=== PATIENT | female | born 1965 | race Two or more races ===

== ENCOUNTER 2019-07-16 07:48 | Outpatient (CLI) | payer OTHER | END 2019-07-16 08:01 | disposition home or self-care (01) | LOC: RAD 07:48 | DX: M79.602 Pain in left arm (principal); M79.601 Pain in right arm ==

== ENCOUNTER 2024-07-09 16:40 | Emergency (ER) | payer OTHER ==
[~2024-07-09] VITALS: Ht 167.6 cm; Wt 70.3 kg
[2024-07-09 17:52] LABS: HEMATOCRIT 40.3 % (36.0-45.00); HEMOGLOBIN 13.9 g/dL (12.0-15.00); MEAN CELL VOLUME 92.8 fL (80.00-100.00); MEAN CORPUSCULAR HEMOGLOBIN 31.9 pg (27.00-32.0); MEAN CORPUSCULAR HGB CONC 34.4 g/dl (32.0-36.0); PLATELET COUNT 276 K/uL (150-450); RED BLOOD COUNT 4.34 M/uL (4.00-6.00); RED CELL DISTRIBUTION WIDTH 13.6 % (11.5-14.5)
[2024-07-09 17:54] LABS: PH,URINE 5.5 (5.0-8.0); URINE APPEARANCE Turbid; URINE BILIRRUBIN Negative (NEGATIVE); URINE BLOOD Moderate; URINE COLOR Dark Yellow; URINE GLUCOSE Negative (NEGATIVE); URINE KETONE Negative (NEGATIVE); URINE LEUKOCYTE Large; URINE NITRATE Positive
[2024-07-09 17:57] LABS: URINE BACTERIA 246.9 uL (0.0-1933); URINE EPITHELIAL CELLS 32.6 uL (0.0-38.8); URINE RBC 37.5 uL (0.0-20.8)
[2024-07-09 18:12] LABS: CALCIUM 9.6 mg/dL (8.5-10.1); CREATININE SERUM 0.8 mg/dL (0.55-1.02); GFR 73.93; POTASSIUM 4.03 mEq/L (3.5-5.1)
[2024-07-09 18:23] LABS: URINE PROTEIN 100 (NEGATIVE)
[2024-07-09 18:24] LABS: URINE MUCUS SCANT
[2024-07-09] MEDS ORDERED: MACROBID 100 M100 MG PO (18:44)
[2024-07-09] MEDS ORDERED: CEFTRIAXONE SODIUM 1,000 MG VIAL IM ONE (19:00)
[2024-07-09] MEDS ORDERED: KETOROLAC TROMETHAMINE 60 MG VIAL IM ONE (19:00)
== END 2024-07-09 20:36 | disposition home or self-care (01) ==
LOC: ER 16:41
PROVIDERS: Nurse Practitioner Family
DX: N39.0 Urinary tract infection, site not specified (principal)